=== PATIENT | female | born 1995 | race Caucasian/White ===

== ENCOUNTER → 2018-12-12 | Outpatient (CLI) | payer OTHER | LOC: ULTRA 07:53 | DX: R10.84 Generalized abdominal pain (principal); R19.7 Diarrhea, unspecified; R11.2 Nausea with vomiting, unspecified ==

== ENCOUNTER → 2019-01-15 | Outpatient (CLI) | payer OTHER ==
[~2019-01-15] VITALS: Ht 172.7 cm; Wt 99.8 kg
[~2019-01-15] MED LIST: AMITRIPTYLINE H50 M2 PO; APRI1 EACH PO; VITAMIN D5000 UNIT PO
--- NOTE | 2019-01-16 17:06 | PATH ---
[facility] [place] [address] PATHOLOGY RPT PROCEDURE Name: MILLICENT GAN Room #: REG SAJI Annette.#: [id number] ������������������ Admission: 01/15/19 ������������������ Date of : 89 Discharge: Report #: [id number] Path Case #: [id number] [facility] Accession Number: [id number] . 01 Material submitted: . PART A: duodenum - BX DUODENUM R/O CELIAC DISEASE PART B: stomach - BX ANTRUM STOMACH R/O H-PYLORI PART C: colon - RANDOM COLON BX R/O MICROSCOPIC COLITIS . 01 Clinical history: . Pre-OP DX: Coffee-ground emesis, change in bowel habits, rectal bleeding, celiac disease Post-OP DX: Internal hemorrhoids, gastritis, hiatal hernia, celiac disease . 02 Diagnosis: A. Small bowel mucosa, duodenum rule out celiac disease, endoscopic biopsy: - No diagnostic abnormalities present. - Negative for villous blunting or increase in intraepithelial lymphocytes. . B. Gastric mucosa, antrum stomach rule out H. pylori, endoscopic biopsy: - Mild reactive gastropathy. - Negative for intestinal metaplasia or atrophy. - Negative for Helicobacter pylori (properly controlled immunohistochemical stain performed). . C. Large intestinal mucosa, random colon rule out microscopic colitis, endoscopic biopsy: - Non-specific reactive changes with foci of lamina propria hemorrhage. - Negative for active cryptitis. - Negative for granulomata. - Negative for microscopic colitis. - Negative for dysplasia or malignancy. (IUV/db; 01/16/2019) LBQ/01/16/2019 . 02 Electronically signed: . Vonnie Quijano MD, Pathologist NPI- [id number] . 01 Gross description: . A. Received in formalin labeled "Millicent Gan, HERMILA duodenum, rule out celiac," are 2 segments of reyna soft tissue measuring 0.8 x 0.2 x 0.2 cm in aggregate dimensions and measuring 0.4 cm each in maximum dimension. The specimen is submitted entirely in cassette A1. . [address] [address] PATHOLOGY RPT PROCEDURE Name: MILLICENT GAN MARCOS Room #: REG [facility] Annette.#: [id number] ������������������ Admission: 01/15/19 ������������������ Date of : [birth year] Discharge: Report #: [id number] Path Case #: [id number] B. Received in formalin labeled "Millicent Gan, HERMILA antrum stomach, rule out H. pylori," are 2 segments of reyna soft tissue measuring 0.7 x 0.3 x 0.2 cm in aggregate dimensions and ranging from 0.3 to 0.4 cm in maximum dimension. The specimen is submitted entirely in cassette B1. . C. Received in formalin labeled "Millicent Gan, random colon BX, rule out microscopic colitis," are multiple segments of reyna soft tissue measuring 1.2 x 0.5 x 0.1 cm in aggregate dimensions. The specimen is filtered and entirely submitted in cassette C1. (TSD; 01/15/2019) TOB/TOB . 02 Pathologist provided ICD-10: K31.9 . 02 CPT . 284306, 013843, 120012, [id number] Specimen Comment: A courtesy copy of this report has been sent to Specimen Comment: [phone], , . Specimen Comment: Report sent to ,DR BATRES / DR MARINELLI Performed at: [facility] [address] [place] [address] [address], [place] [id number] MD Blayne Aslhey MD Phone: [phone] Performed at: [address] [id number] MD Vonnie Quijano MD Phone: [phone]
== END | disposition home or self-care (01) ==
LOC: GI 11:41
DX: K29.70 Gastritis, unspecified, without bleeding (principal); K31.9 Disease of stomach and duodenum, unspecified; K64.8 Other hemorrhoids; K44.9 Diaphragmatic hernia without obstruction or gangrene; F41.9 Anxiety disorder, unspecified; Z88.2 Allergy status to sulfonamides; Z79.899 Other long term (current) drug therapy; Z98.890 Other specified postprocedural states
CPT/HCPCS: 62110; 62900